=== PATIENT | male | born 1995 | race Hispanic/Latino ===

== ENCOUNTER 2024-01-26 09:43 | Emergency (ER) | payer SELFPAY ==
[2024-01-26 10:58] LABS: Absolute Neutrophil Ct (ANC) 1.82 x10^3/uL (1.78-5.38); Basophil (Absolute #) 0.05 x10^3/uL (0.01-0.08); Eosinophil % 4.1 % (0.8-7.0); Hematocrit 39.5 % (40.1-51.0); Hemoglobin 13.3 g/dL (13.7-17.5); IMMATURE GRAN # 0.01 x10^3u/L (0.001-0.031); IMMATURE GRAN % 0.2 % (0.001-0.429); Lymphocyte (Absolute #) 2.31 x10^3/uL (1.32-3.57); Lymphocytes % 47.5 % (21.8-53.1); Mean Cell Volume 92.7 fL (79.0-92.2); Mean Corpuscular Hemoglobin 31.2 pg (25.7-32.2); Mean Corpuscular Hgb Concent. 33.7 g/dL (32.3-36.5); Mean Platelet Volume 8.8 fL (9.4-12.4); Monocyte (Absolute #) 0.47 x10^3/uL (0.30-0.82); Monocytes % 9.7 % (5.3-12.2); Neutrophil % 37.5 % (34.0-67.9); Platelet Count 180 x10^3/uL (163-337); Red Blood Count 4.26 x10^6/uL (4.63-6.08); Red Cell Distribution Width 11.8 % (11.6-14.4); White Blood Count 4.9 x10^3/uL (4.23-9.07)
[2024-01-26 11:09] LABS: ALBUMIN 4.2 g/dL (3.5-5.0); ANION GAP 12.4 MEQ/L (5-15); BILIRUBIN,TOTAL 0.5 mg/dL (0.2-1.3); Calcium 9.3 mg/dL (8.4-10.2); Creatinine 1 0.83 mg/dL (0.66-1.25); EST GLOMERULAR FILTRATION RATE 120.8 ML/MIN; Potassium 3.9 mmol/L (3.5-5.1)
[2024-01-26 11:16] VITALS: TEMP 97.8
[2024-01-26 12:03] VITALS: O2SAT 100
--- NOTE | 2024-01-26 12:21 | ERPHSYRPT ---
- History of Present Illness Time Seen by Provider: 01/26/24 10:30 Historian: patient Exam Limitations: no limitations Patient Subjective Stated Complaint: Pt states that last week he began having pain in his right chest and it radiates to his back, the pain had went away and it came back yesterday, pt works in the [employer] Triage Nursing Assessment: Pt brought to the ER by his friend, bradycardic, rates pain as 8/10, bounding pulses, skin n/w/d, states that the pain is in his right chest and radiates into the back, has a physical job, tries to drink as much water as possible, has had a problem in the past with bradycardia, denies N&V, denies diarrhea Physician History: 28-year-old male presented in the ER with complaint of intermittent right-sided chest pain moderate intensity dull aching, radiating to the back. Patient has been taking methocarbamol/ibuprofen with no significant relief. Pain goes away on its own at times. No difficulty breathing or palpitations. No history of coronary artery disease. Nitro Today/Relief: no nitro taken today Aspirin Treatment Today: no aspirin today Allergies/Adverse Reactions: No Known Drug Allergies Allergy (Verified 01/26/24 10:08) Hx Tetanus, Diphtheria Vaccination/Date Given: No Immunizations Up to Date: No (unknown) Travel Risk - International Travel Have you traveled outside of the country in past 3 weeks: No - Emerging Infectious Disease Are you exhibiting symptoms associated with any current EIDs: No - Review of Systems Constitutional: No Symptoms Eyes: No Symptoms Ears, Nose, & Throat: No Symptoms Respiratory: No Symptoms Cardiac: Chest Pain Abdominal/Gastrointestinal: No Symptoms Genitourinary Symptoms: No Symptoms Musculoskeletal: No Symptoms Skin: No Symptoms Neurological: No Symptoms Endocrine: No Symptoms Hematologic/Lymphatic: No Symptoms Immunological/Allergic: No Symptoms - Past Medical History Pertinent Past Medical History: No - Past Surgical History Past Surgical History: No - Social History Smoking Status: Never smoker Exposure to second hand smoke: Yes Drug Use: none - Social Determinants of Health Will the patient participate in the screening: Unable to obtain - Nursing Vital Signs Nursing Vital Signs: Initial Vital Signs Temperature 97.8 F 01/26/24 09:52 Pulse Rate 50 L 01/26/24 09:52 Respiratory Rate 20 01/26/24 09:52 Blood Pressure 129/70 01/26/24 09:52 O2 Sat by Pulse Oximetry 100 01/26/24 09:52 Pain Scale Pain Intensity [Right Chest] 8 Pain Intensity 8 - Physical Exam General Appearance: no apparent distress, alert Eye Exam: PERRL/EOMI Ears, Nose, Throat Exam: normal ENT inspection Neck Exam: normal inspection, non-tender, supple, full range of motion Respiratory Exam: normal breath sounds, lungs clear, No chest tenderness Cardiovascular Exam: regular rate/rhythm, normal heart sounds Gastrointestinal/Abdomen Exam: soft, No tenderness Back Exam: normal inspection, normal range of motion, No CVA tenderness, No vertebral tenderness, No decreased range of motion Extremity Exam: normal inspection, normal range of motion Neurologic Exam: alert, oriented x 3, cooperative Skin Exam: normal color SpO2 Interpretation: normal SpO2: 100 O2 Delivery: Room Air Ordered Tests: Active Orders 24 hr Category Date Time Status Outsole Splicer STAT Care 01/26/24 10:35 Completed EKG-ER Only STAT Care 01/26/24 10:34 Completed IV Insertion STAT Care 01/26/24 10:34 Completed Pulse Oximetry (ED) STAT Care 01/26/24 10:34 Completed CHEST WITH CONTRAST [CT] Stat Exams 01/26/24 11:37 Completed CBC W DIFF Stat Lab 01/26/24 10:40 Completed CK-Creatinine Phosphokinase Stat Lab 01/26/24 10:40 Completed CMP Stat Lab 01/26/24 10:40 Completed D-DIMER QUANTITATIVE Stat Lab 01/26/24 10:40 Completed TROPONIN Q4H Lab 01/26/24 10:40 Completed TROPONIN Q4H Lab 01/26/24 13:30 Completed Lab/Rad Data: Laboratory Result Diagrams 01/26/24 10:40 01/26/24 10:40 Laboratory Results 01/26/24 01/26/24 01/26/24 Range/Units 13:30 10:40 10:40 WBC (4.23-9.07) x10^3/uL RBC (4.63-6.08) x10^6/uL Hgb (13.7-17.5) g/dL Hct (40.1-51.0) % MCV (79.0-92.2) fL MCH (25.7-32.2) pg MCHC (32.3-36.5) g/dL RDW (11.6-14.4) % Plt Count (163-337) x10^3/uL MPV (9.4-12.4) fL Gran % (34.0-67.9) % Immature Gran % (Auto) (0.001-0.429) % Nucleat RBC Rel Count (0.00-0.2) % Eos # (Auto) (0.04-0.54) x10^3/uL Immature Gran # (Auto) (0.001-0.031) x10^3u/L Absolute Lymphs (auto) (1.32-3.57) x10^3/uL Absolute Monos (auto) (0.30-0.82) x10^3/uL Absolute Nucleated RBC (0.00-0.012) x10^3u/L Lymphocytes % (21.8-53.1) % Monocytes % (5.3-12.2) % Eosinophils % (0.8-7.0) % Basophils % (0.2-1.2) % Absolute Granulocytes (1.78-5.38) x10^3/uL Basophils # (0.01-0.08) x10^3/uL D-Dimer 0.32 (0.0-0.50) mg/L Sodium (135-145) mmol/L Potassium (3.5-5.1) mmol/L Chloride (98-107) mmol/L Carbon Dioxide (22-30) mmol/L Anion Gap (5-15) MEQ/L BUN (9-20) mg/dL Creatinine (0.66-1.25) mg/dL Estimated GFR ML/MIN Glucose (74-106) mg/dL Calcium (8.4-10.2) mg/dL Total Bilirubin (0.2-1.3) mg/dL AST (17-59) U/L ALT (0-50) U/L Alkaline Phosphatase (38-126) U/L Creatine Kinase (55-170) U/L Troponin I < 0.012 < 0.012 (0.000-0.033) ng/mL Serum Total Protein (6.3-8.2) g/dL Albumin (3.5-5.0) g/dL 01/26/24 01/26/24 Range/Units 10:40 10:40 WBC 4.9 (4.23-9.07) x10^3/uL RBC 4.26 L (4.63-6.08) x10^6/uL Hgb 13.3 L (13.7-17.5) g/dL Hct 39.5 L (40.1-51.0) % MCV 92.7 H (79.0-92.2) fL MCH 31.2 (25.7-32.2) pg MCHC 33.7 (32.3-36.5) g/dL RDW 11.8 (11.6-14.4) % Plt Count 180 (163-337) x10^3/uL MPV 8.8 L (9.4-12.4) fL Gran % 37.5 (34.0-67.9) % Immature Gran % (Auto) 0.2 (0.001-0.429) % Nucleat RBC Rel Count 0.0 (0.00-0.2) % Eos # (Auto) 0.20 (0.04-0.54) x10^3/uL Immature Gran # (Auto) 0.01 (0.001-0.031) x10^3u/L Absolute Lymphs (auto) 2.31 (1.32-3.57) x10^3/uL Absolute Monos (auto) 0.47 (0.30-0.82) x10^3/uL Absolute Nucleated RBC 0.00 (0.00-0.012) x10^3u/L Lymphocytes % 47.5 (21.8-53.1) % Monocytes % 9.7 (5.3-12.2) % Eosinophils % 4.1 (0.8-7.0) % Basophils % 1.0 (0.2-1.2) % Absolute Granulocytes 1.82 (1.78-5.38) x10^3/uL Basophils # 0.05 (0.01-0.08) x10^3/uL D-Dimer (0.0-0.50) mg/L Sodium 138 (135-145) mmol/L Potassium 3.9 (3.5-5.1) mmol/L Chloride 102 (98-107) mmol/L Carbon Dioxide 28 (22-30) mmol/L Anion Gap 12.4 (5-15) MEQ/L BUN 20 (9-20) mg/dL Creatinine 0.83 (0.66-1.25) mg/dL Estimated GFR 120.8 ML/MIN Glucose 112 H (74-106) mg/dL Calcium 9.3 (8.4-10.2) mg/dL Total Bilirubin 0.50 (0.2-1.3) mg/dL AST 24 (17-59) U/L ALT 21 (0-50) U/L Alkaline Phosphatase 56 (38-126) U/L Creatine Kinase 172 H (55-170) U/L Troponin I (0.000-0.033) ng/mL Serum Total Protein 7.0 (6.3-8.2) g/dL Albumin 4.2 (3.5-5.0) g/dL - Progress Progress: re-examined Air Movement: good Progress Note: 01/26/24 13:44 28-year-old fairly healthy male is evaluated for right-sided chest pain with radiation to the back off-and-on for a week with lately getting worse. Patient has taken ibuprofen and muscle relaxant prior to arrival with some relief. Does not want any pain medication currently. EKG is sinus bradycardia with no ST elevations. Negative troponins. Fairly unremarkable chemistries. CTA chest is negative for PE/dissection/pneumothorax or any other acute findings. I believe patient's symptoms are more of a musculoskeletal, recommended supportive care and outpatient follow-up. Low heart score, do not think needs second troponin as patient symptoms been going on for the last few days and 1 negative is enough to rule it out. Discussed signs symptoms of worsening needing return to ER which he seems understanding. Note patient friend was used as a press breaker because he is a [place]-speaking Blood Culture(s) Obtained: No Antibiotics given: No Counseled pt/family regarding: lab results, diagnosis, need for follow-up, rad results Medical Desision Making - Diagnostic Testing Diagnostic test were ordered, analyzed, and reviewed by me: Yes Radiological Interpretation: Reviewed by me, Teleradiologist Report - Departure Departure Disposition: Home Clinical Impression: Intermittent right-sided chest pain Condition: Stable Critical Care Time: No Referrals: DOCTOR,NO FAMILY [Primary Care Provider] - Follow up with PCP 1 day Instructions: Chest Pain, Adult ED, Upper back pain Additional Instructions: Take Tylenol/ibuprofen as needed. Follow-up with primary care for reevaluation. Return to ER for worsening chest pain or if having difficulty breathing etc. Avoid exertional activities. Prescriptions: Ibuprofen 600 mg PO Q6HPRN PRN 10 Days #20 tablet PRN Reason: Pain
--- NOTE | 2024-01-26 13:37 | XRAY ---
CLINICAL HISTORY: pain COMPARISON: None. TECHNIQUE: Contiguous, axial CT images of the chest were acquired with administration of intravenous contrast. Coronal and sagittal reconstructions were obtained. 80 cc Isovue 370 was administered as IV contrast. One of the following dose reduction techniques were utilized for this exam: Automated exposure control, adjustment of the mA and/or kV according to patient size, and use of iterative reconstruction FINDINGS: Lungs: No evidence of consolidation, collapse, or focal lesions. No ground-glass opacities or interstitial changes. Gravitational-dependent subpleural atelectatic changes seen No pleural effusion or pleural thickening. Mediastinum: No mediastinal mass or abnormal lymphadenopathy. Normal appearance of the thymus. Hilar Structures: Normal size and configuration, no enlargement. Heart and Great Vessels: Normal heart size and configuration. No pericardial effusion. Normal caliber and course of the thoracic aorta and other great vessels. No significant atherosclerosis or aneurysm. Normal enhancement of the great vessels post-contrast. Pulmonary Arteries: No evidence of pulmonary embolism. Normal size and course of the pulmonary arteries. Esophagus: Normal course and caliber. No masses or dilatation. Bones: No fractures or lytic/sclerotic lesions. Normal bone density and alignment. Chest Wall: No masses or soft tissue abnormalities. Upper Abdomen: Visualized portions of the liver, spleen, pancreas, adrenal glands, and kidneys are normal. No abnormalities noted in the visualized upper abdominal organs. Thyroid: Normal size and morphology. No nodules or masses. IMPRESSION: No evidence of pulmonary embolism. No evidence of significant vascular abnormalities. No pulmonary mass, nodule, collapse or consolidative changes. Electronically Signed by: Ashu Trivedi MD. (01/26/2024 13:32:42 EDT)
[2024-01-26 13:49] VITALS: BP 122/69; PULSE 68; RESP 17
== END 2024-01-26 14:05 | disposition home or self-care (01) ==
LOC: ED 09:43
DX: R07.9 Chest pain, unspecified (principal)
CPT/HCPCS: 36000; 36415; 71260; 80053; 82550; 84484; 85025; 85379; 93005; 93041; 94760; 99284